=== PATIENT | female | born 1970 | race Caucasian/White ===

== ENCOUNTER 2016-09-25 02:57 | Inpatient (IN) | payer OTHER ==
[~2016-09-25] VITALS: Ht 162.6 cm; Wt 98.0 kg
[~2016-09-25 02:57] MED LIST: BENZONATATE100 M1 PO; COZAAR50 M1 PO; CYCLOBENZAPRINE10 M1 PO; DOK100 M1 PO; FUROSEMIDE40 M1 PO; HYDRODIURIL 2525 MG PO; IMITREX50 M1 PO; LOSARTAN POTASS25 M1 PO; LOSARTAN POTASS50 MG PO; MEDROL4 M2 PO; MELOXICAM15 M1 PO; MOTRIN800 MG PO; OXYCODONE-ACET1 EACH PO; PERCOCET 325 MG1 TA2 PO; PROAIR HFA8.5 GM INH; PROTONIX 40MG T40 MG PO; SYMBICORT 16010.2 GM INH; TANZEUM50 MG INJ; VERAPAMIL ER120 M1 PO; ZOFRAN4 MG PO; ZYRTEC10 M3 PO
--- NOTE | 2016-09-25 14:17 | Admission Core Measures ---
Admission Lab Results I reviewed the following labs: Laboratory Tests 09/25 120 Urines Urine Test NEGATIVE Admission Meds I reviewed the following Meds: Current Medications Sig/Polly Start time Last Medication Dose Stop Time Status Admin Clindamycin 900 MG ONCE 09/25 0000 NR (Cleocin) 09/25 2358 Dextrose/Water 50 ML (D5W) Heparin Sodium 5,000 UNIT ONCE 09/25 0000 NR (Porcine) 09/25 2358 Acute Coronary Syndrome Inclusion Criteria ACS Diagnosis No Inpatient Core Measures LDL Reminder: If No, please order W/I first 24hr of stay Congestive Heart Failure Inclusion Criteria CHF Diagnosis No Cerebrovascular accident Inclusion Criteria CVA/TIA Diagnosis No Inpatient Core Measures Bedside Swallow Eval Reminder: If BSE failed, place ST order Antithrombotic Reminder: Order Antithrombotic Medication by end of day 2 Antithrombotic Reminder: Document Reason Antithrombotic Not ordered by end of day 2 AFIB/Flutter Reminder: If Present, add to problem list AFIB/Flutter Reminder: Order Anticoag Medication for pts with AFIB/Flutter Atherosclerosis Reminder: If Present, add to problem list LDL Reminder: If No, please order W/I first 24hr of stay PT Order Reminder: If No, please order Venous thromboembolism Inpatient Core Measures VTE Risk Factors: Age > 40, Obesity, Surgery No [facility] VTE prophylaxis d/t No contraindications No VTE Pharm Prophylaxis d/t No contraindications Inclusion Criteria - Per Current guidelines, there needs to be overlap - treatment for the first 5 days of Warfarin therapy. - Parenteral Anticoagulation (IV or SC) needs to be - given along with Warfarin therapy. VTE Diagnosis No VTE Type NONE VTE Confirmed by (Test) NONE Problem List As ranked by this Provider includes Assessment & Plan 1. Morbid obesity 2. Gastric bypass status for obesity 3. GERD (gastroesophageal reflux disease) 4. Hypertension HOME MEDS Home Med List Cetirizine HCl (Zyrtec) 10 MG TABLET 1 TAB PO DAILY ALLERGIES (Reported) Furosemide 40 MG TABLET 1 TAB PO DAILY HTN (Reported) Losartan Potassium (Cozaar) 50 MG TABLET 1 TAB PO DAILY HTN (Reported) Pantoprazole Sodium (Protonix) 40 MG TABLET.DR 1 TAB PO DAILY ACID Sumatriptan Succinate (Imitrex) 50 MG TABLET 1 TAB PO AD PRN MIGRAINE ( Reported)
--- NOTE | 2016-09-25 14:21 | Patient Discharge Instructions ---
Discharge Instructions General Discharge Information You were seen/treated for: morbid obesity, hx hypertension and gerd You had these procedures: laparoscopic gastric bypass (09/25/16) Watch for these problems: fever>101.3, increased pain, redness/swelling/drainage, abdominal pain, dizziness, shortness of breath, chest pains. No bath, but you may shower: Yes Other wound care: you may shower. leave white steri strips in place. expect continued drainage from previous drain site, for which dry guaze may be used as a dressing until the drainage stops. Diet Continue normal diet: No Recommended Diet: Bariatric Additional DIET Information: weekly stage diet advancements as directed, as tolerated Activity Full Activity/No Limits: No Activity Self Limited: Yes Pounds, do NOT lift more than: 10 Other activity limits: no heavy lifting. no strenuous activity. Acute Coronary Syndrome Inclusion Criteria At DC or during hospital stay patient has or had the following: ACS DIAGNOSIS No Discharge Core Measures Meds if any: Prescribed or Continued at Discharge Meds if any: NOT Prescribed or Continued at Discharge Congestive Heart Failure Inclusion Criteria At DC or during hospital stay patient has or had the following: CHF DIAGNOSIS No Discharge Core Measures Meds if any: Prescribed or Continued at Discharge Meds if any: NOT Prescribed or Continued at Discharge Cerebrovascular accident Inclusion Criteria At DC or during hospital stay patient has or had the following: CVA/TIA Diagnosis No Discharge Core Measures Meds if any: Prescribed or Continued at Discharge Meds if any: NOT Prescribed or Continued at Discharge Venous thromboembolism Inclusion Criteria VTE Diagnosis No VTE Type NONE VTE Confirmed by (Test) NONE Discharge Core Measures - Per Current guidelines, there needs to be overlap - treatment for the first 5 days of Warfarin therapy. - If discharged on Warfarin prior to 5 days of - overlap therapy, the patient will need to be - assessed for post discharge needs including - *Post discharge parental anticoagulation - *Warfarin and/or parental anticoagulation education - *Follow up date to check INR post discharge At least 5 days overlap therapy as Inpatient No Meds if any: Prescribed or Continued at Discharge Note: Overlap Therapy is Warfarin and Anticoagulant Meds if any: NOT Prescribed or Continued at Discharge
[2016-09-25] MEDS ORDERED: HYCET 7.5 MG-3473 ML PO (14:23)
--- NOTE | 2016-09-25 14:31 | Surg Short-stay <48hrs Dis Sum ---
Visit Information Visit Dates Admission Date: 09/25/16 Discharge Date: 09/27/16 Surgical Short Stay DC Summary Admission Diagnosis: morbid obesity, hx of hypertension and gerd Final Diagnosis: same as above Procedure(s): laparoscopic gastric bypass (09/25/16) Summary/Significant Findings: Electively scheduled laparoscopic gastric bypass by (09/25/16), which went routinely. Started on stage 1 bariatric diet post-operatively. Pain control transitioned from iv to oral. Upper gi study done on post-op day#1 negative for leak or obstruction. Her blood pressure was stable throughout her hospitalization off losartan. KENDAL drain removed prior to discharge to home on post-op day#2. No lovenox indicated for continued treatment, according to her risk score. Condition at Discharge: stable Discharge Disposition: home or self care Discharge instructions provided to patient/family: Yes Post discharge follow-up plan: follow up with in one week weekly stage diet advancement, as tolerated
--- NOTE | 2016-09-25 16:49 | Operative Report ---
Operative/Inv Procedure Report Surgery Date: 09/25/16 Name of Procedure: Laparoscopic Gastric Bypass Pre-Operative Diagnosis: Morbid Obesity BMI 39, HTN, GERD, PCOS Post-Operative Diagnosis: Same Estimated Blood Loss: less than 50ml Surgeon/Tank Car Repairer: JACQUELIN VELAZQUEZ DO Anesthesia: general endotracheal tube IV Fluids: 1600 cc Drains: 10 Fr RUQ KENDAL Drain Specimens: None Complications: None Condition: Stable Operative Indication: This is a 46-year-old female that presented to the office for workup for bariatric surgery. After appropriate workup was completed we discussed with the patient the band, the sleeve, and the gastric bypass. The patient chose to undergo a gastric bypass. All risks including but not limited to bleeding, infection, leak, stricture, marginal ulcer, injury to surrounding bowel/ esophagus/stomach/liver/spleen, malabsorption/malnutrition, internal hernia/ small bowel obstruction, dumping syndrome, DVT/PE, and mortality of 05/999 patients were discussed in detail. The patient understood everything and decided to proceed. Operative/Procedure Note Note: The patient was brought to the operating room and placed on the table in supine position. Venodyne stockings were placed and adequate general endotracheal anesthesia was obtained. The patient was prepped and draped in standard surgical fashion. Began the procedure by making a 2 cm transverse incision supraumbilically and slightly to the left of the midline. Then using a 12 mm clear Visiport and a 10 mm 0 laparoscope the abdominal cavity was accessed. Great care was taken to go through the anterior rectus sheath, the posterior rectus sheath, and through the peritoneum. Once we entered the peritoneum the abdominal cavity was insufflated to 15 mmHg. Upon initial examination no obvious gross pathology was seen. Accessory trocars were placed, 5 mm in the epigastrium for the Karina liver retractor. The liver retractor was inserted and the liver was retracted anteriorly exposing the hiatus, no obvious hiatal hernia was seen. 5 mm ports were placed in the right and left upper quadrant, 5 mm left lateral port, and a 12 mm right lateral port. Began the procedure by mobilizing the angle of His and the left allison of the diaphragm. The stomach was retracted towards the feet and the peritoneum was lysed until the left allison was clearly visualized. We then brought our attention to the lesser curvature, and at the second vessel I began accessing the retrogastric space. Was done using Harmonic scalpel maintaining hemostasis. Once the retrogastric space was accessed we began creating our pouch using 60 mm purple staple load 3, and finished with a 45 mm purple load. The pouch was created around an Alma tube. Once the pouch was completely disconnected from the gastric remnant we examined the staple lines, some bleeding was noted and that was controlled using endoclips. We then brought our attention to the small bowel, the omentum was retracted above the transverse colon and the ligament of Treitz was identified. The small bowel was run 50 cm and divided using 60 mm farrell staple load. 2 clips were placed on the proximal staple line which was the biliopancreatic limb. That limb was run to the ligament of Treitz to assure that that was the blind limb. Following this the omentum was divided using Harmonic scalpel. After the omentum was divided the small bowel was coming up to the gastric pouch with no tension. At that point an enterotomy was made 5 cm from the prior divided distal staple line, chcf between the mesenteric and antimesenteric side. A gastrotomy was made posterior to the staple line. A side to side gastrojejunostomy was created using 45 mm purple staple load approximately 3-3-1 /2 cm in diameter. The Alma tube was passed through the common enterotomy, and the common enterotomy was closed using 2-0 Vicryl suture in a running fashion double layer. Following this the small bowel was clamped off distal to the anastomosis, and we preformed an air and a methylene blue leak test. No obvious leak was noted. All the methylene blue was suctioned out. The small bowel was then run 100 cm and an enterotomy was made on the antimesenteric side. Another enterotomy was made on the antimesenteric side of the biliopancreatic limb. A side to side functional end end jejunojejunostomy was created using 60 mm farrell staple load. The common enterotomy was closed using a 60 mm farrell staple load followed by a 45 mm farrell staple load. Some bleeding was noted from the staple line and that was controlled using endoclips as well. The mesenteric defect was closed using 2-0 Tycron suture in a running fashion. At that point we examined both anastomoses no obvious bleeding was noted and both appeared intact. 2-0 Vicryl suture was placed at the distal angle of the gastrojejunostomy to take some tension off the anastomosis. And a 2-0 Vicryl suture was placed on the anterior surface of the jejunum closing what appeared to be a serosal tear. A 10 Indonesian KENDAL drain was placed through the right upper quadrant incision under the liver and over the spleen. All ports were removed under direct visualization, no obvious bleeding was noted. Skin was closed using 4-0 Monocryl. Steri-Strips and dressings were placed. The patient was successfully extubated and transferred to the recovery room in stable condition. The patient tolerated the procedure well with no complications. Findings: no hiatal hernia, 100 cm alimentary limb CC: LUDA KRISHNA DO
[2016-09-25 19:36] VITALS: BP 126/82
--- NOTE | 2016-09-25 20:05 | NUR ---
NURSING NOTE: PT ARRIVED TO FLOOR VIA STRETCHER BY DISTRIBUTION FROM PACU. PT IS S/P LAP GASTRIC BYPASS. PT IS A&OX3, VSS AT THIS TIME STABLE, HR IS TACHY AT 112, PT C/O OF PAIN 5/10 IN ABD, HYCET GIVEN. PT HAS 5 ABD DSGS TO ABD ALL OF WHICH ARE CDI, THE FAR LEFT HAS A SMALL AMOUNT OF OLD BLOODY DRAINGE. KENDAL DRAIN TO R ABD SITE WNL, PUTTING OUT BLOODY DRAINAGE. PT LAST BM 09/24/16 AND STATES SHE IS NOT PASSING GAS AT THIS TIME, ONLY BURPING. NO BS HEARD. PT NPO FR UPPER GI SERIES IN THE MORNING. ALPS IN PLACE. SKIN INTACT, NO BREAKDOWN NOTED. NO FURTHER COMPLAINTS AT THIS TIME. AWAIT ANY ADDITIONAL ORDERS FROM SURGICAL PA. INFO PACKET GIVEN. PT SHOWN HOW TO USE CALL LIGHT SYSTEM. WILL CONTINUE TO MONITOR.
[2016-09-25 21:56] VITALS: BP 140/80
--- NOTE | 2016-09-25 23:20 | PN- General Surgery ---
Subjective Subjective: poc s/p lap gastric bypass no major complaints at this time denies cp, sob, no n+v with stage I diet Objective Vital Signs and I&Os Vital Signs Date Time Temp Pulse Resp B/P B/P Pulse O2 O2 Flow FiO2 Mean Ox Delivery Rate 09/25 2199 92 Room Air 09/26 2155 98.4 117 20 140/80 92 09/25 1936 94 Room Air 09/26 1935 98.1 112 20 126/82 94 Room Air Physical Exam: cv: rrr lungs: clear abd: soft, no guarding drsg dry coleen with minimal serosanguinous drainage ext: warm, distal cms intact reltex bracelet in place Assessment/Plan Assessment/Plan surgical stable plan ugi series in am walden behavioral carenox teaching oob /ambulate Core Measures/Miscellaneous Venous Thromboembolism VTE Risk Factors: Age > 40, Obesity, Surgery VTE Contraindications: No Contraindications VTE Diagnosis: No VTE Type: NONE VTE Confirmed by (Test): NONE Beta Travis Is Beta Travis a Home Med? No Antibiotics Is Patient on Antibiotics? No
[2016-09-26 06:31] VITALS: BP 112/74
--- NOTE | 2016-09-26 06:58 | PN- Bariatrics ---
See Addendum Subjective Subjective: The patient was seen this morning postoperatively day 1. She reports her pain is under adequate control and has no other complaints at the current time. She reports ambulating frequently and denies any nausea, chest pain, or difficulty breathing. Objective Vital Signs and I&Os Vital Signs Date Time Temp Pulse Resp B/P B/P Pulse O2 O2 Flow FiO2 Mean Ox Delivery Rate 09/26 630 97.9 95 18 112/74 95 Room Air 09/26 0621 Room Air 09/26 0200 92 Room Air 09/25 2200 92 Room Air 09/25 2156 98.4 117 20 140/80 92 09/25 1936 94 Room Air 09/25 193 98.1 112 20 126/82 94 Room Air Intake & Output 09/26 0800 09/26 0000 09/25 1600 09/25 0800 09/25 0000 09/24 1600 Intake Total 800 2513 Output Total 1015 570 Balance -215 1943 Intake, IV 800 2513 Intake, Oral 0 0 Output, 15 70 Drainage Output, Urine 1000 500 Patient 216 lb Weight Weight Reported by Patient Measurement Method Physical Exam: Gen.: Alert and in no obvious distress Skin: Warm and dry Cardiac: S1-S2 regular Pulmonary: Bilateral breath sounds are equal and decreased at bases Abdomen: Soft, obese, appropriate incisional tenderness, bowel sounds positive. Port sites are clean, dry, and intact. His KENDAL 1 holding suction with serosanguineous drainage in the bulb. Extremities: Bilateral lower extremities warm without calf tenderness or significant edema. Assessment/Plan Assessment/Plan Assessment: 46-year-old female status post lap scopic gastric bypass postoperative day #1. The patient is progressing as expected and her pain is under adequate control. Plan: Keep nothing by mouth for an upper GI this morning if that study is okay the patient be started on a stage I diet Out of bed and ambulate Follow-up morning laboratory studies GI and DVT prophylaxis Decrease IV fluids Continue current pain regiment Incentive spirometry Strict I's and O's Core Measures/Miscellaneous Venous Thromboembolism VTE Risk Factors: Age > 40, Obesity, Surgery VTE Contraindications: No Contraindications VTE Diagnosis: No VTE Type: NONE VTE Confirmed by (Test): NONE Beta Travis Is Beta Travis a Home Med? No Antibiotics Is Patient on Antibiotics? No
[2016-09-26 08:03] LABS: ABSOLUTE BASOPHIL COUNT 0 /CUMM (0.0-0.2); ABSOLUTE EOSINOPHIL COUNT 0 /CUMM (0.0-0.7); ABSOLUTE GRANULOCYTE CT 9.7 /CUMM (1.4-6.5); ABSOLUTE LYMPH COUNT 0.9 /CUMM (1.2-3.4); ABSOLUTE MONOCYTE COUNT 0.5 /CUMM (0.10-0.60); BASOPHIL % 0.2 % (0.0-2.0); EOSINOPHIL % 0 % (0-5); HEMATOCRIT 39.5 % (37-47); MEAN CORPUSCULAR HGB 29.1 PG (27.0-31.0); MEAN CORPUSCULAR HGB CONC 33.8 G/DL (33.0-37.0); MEAN CORPUSCULAR VOLUME 86.2 FL (81.0-99.0); MEAN PLATELET VOLUME 7.9 FL (7.4-10.4); PLATELET COUNT 301 /CUMM (130-400); RBC DISTRIBUTION WIDTH 14.1 % (11.5-14.5); RED BLOOD CELL CT 4.57 /CUMM (4.20-5.40); WHITE BLOOD CELL COUNT 11.2 /CUMM (4.8-10.8)
--- NOTE | 2016-09-26 08:38 | NUR ---
PT OFF THE FLOOR FOR UPPER GI SERIES. PENDING RETURN TO FLOOR.
--- NOTE | 2016-09-26 11:06 | RADIOLOGY REPORT ---
EXAMINATION: FLUOROSCOPY UPPER GI WITH GASTROGRAFIN CLINICAL INFORMATION: 1 day status post gastric bypass study. Postoperative evaluation. COMPARISON: None. TECHNIQUE: A limited Gastrografin upper GI study was performed using 30 ml of Gastroview with the patient in the semiupright position. Single spot film and 4 fluoroscopy series were acquired and are archived in PACS. FINDINGS: The preliminary aboriginal liaison officer view of the abdomen performed on 2 images demonstrate a drain and postsurgical kayley in the epigastric region. Normal bowel gas pattern is seen without abnormal bowel distention seen. Esophageal distensibility and motility is normal. The GE junction is located below the level of the diaphragm and no GE reflux seen. The remnant gastric pouch is normal with no abnormal distention or contrast leak seen. There is prompt emptying of contrast into the anastomosed small bowel, which is unremarkable in appearance. FLUOROSCOPY TIME: 48 seconds. IMPRESSION: Unremarkable examination status post gastric bypass study. No evidence of perforation or gastric outlet obstruction.
[2016-09-26 11:15] VITALS: BP 104/65
[2016-09-26 18:15] VITALS: BP 118/82
[2016-09-26 22:01] VITALS: BP 120/78
[2016-09-27 06:53] VITALS: BP 118/76
--- NOTE | 2016-09-27 07:20 | PN- Bariatrics ---
Subjective Subjective: No complaints. Tolerating stage 1 diet. No nausea at this time, but one episode yesterday. Upper gi study negative yesterday. Ambulating well. No dizziness. No shortness of breath. No chest pains. Voiding well. No flatus or bm yet, but willing to try dulcolax. Objective Vital Signs and I&Os Vital Signs Date Time Temp Pulse Resp B/P B/P Pulse O2 O2 Flow FiO2 Mean Ox Delivery Rate 09/27 0653 97.9 92 18 118/76 92 Room Air 09/27 0600 Room Air 09/26 2201 98.4 80 19 120/78 92 Room Air 09/26 2200 92 Room Air 09/26 1815 98.4 80 19 118/82 96 Room Air 09/26 1257 92 Room Air 09/26 1245 Room Air 09/26 1115 98.1 81 20 104/65 93 Room Air Intake & Output 09/27 0800 09/27 0000 09/26 1600 09/26 0800 09/26 0000 09/25 1600 Intake Total 720 735 794 145 4566 Output Total 220 488 030 1400 570 Balance 500 620 185 -90 1943 Intake, IV 600 375 244 600 9524 Intake, Oral 120 360 230 0 0 Number 0 Bowel Movements Output, 20 15 20 15 70 Drainage Output, Urine 200 376 699 0141 500 Patient 216 lb Weight Weight Reported by Patient Measurement Method Physical Exam: General - alert & oriented x 3. comfortable. no acute distress. Lungs - clear bilaterally. no w/r/r. Cardiac - s1s2. reg. Abdomen - soft. dressings c/d/i. expected juliet-incisional tenderness. KENDAL drain with serosang drainage. Extremities - warm bilaterally. no c/c/e. calves soft and nontender b/l. Current Medications: Current Medications Sig/Polly Start time Last Medication Dose Route Stop Time Status Admin Acetaminophen 1,000 MG Q6H 09/25 2199 DC 09/26 N/A 1 UNIT IV 09/26 1614 1657 Acetaminophen/ 15 ML Q6P PRN 09/25 1929 AC 09/27 Hydrocodone Bitart PO 0526 Bisacodyl 10 MG ONCE ONE 09/27 0715 UNVr VT 09/27 0716 Dextrose/Sodium 1,000 ML Q8H 09/25 1929 AC 09/27 Chloride IV 0530 Heparin Sodium 5,000 UNIT Q8 09/25 2199 AC 09/27 (Porcine) SC 0526 Hydromorphone HCl 1 MG Q4P PRN 09/25 1929 AC 09/26 IV 2315 Ketorolac 30 MG Q8 09/26 2199 AC 09/27 Tromethamine IV 09/27 2200 0611 Ondansetron HCl 4 MG Q6P PRN 09/25 1929 AC IV Pantoprazole Sodium 40 MG DAILY 09/26 1000 AC 09/26 IV 1047 Simethicone 40 MG Q6P PRN 09/25 1929 AC 09/27 PO 0526 Results Last 48 Hours of Labs: Laboratory Tests 09/26 09/25 0744 1207 Chemistry Sodium (137 - 145 mmol/L) 137 Potassium (3.5 - 5.1 mmol/L) 4.3 Chloride (98 - 107 mmol/L) 101 Carbon Dioxide (22 - 30 mmol/L) 28 Anion Gap (5 - 16) 9 BUN (7 - 17 mg/dL) 8 Creatinine (0.5 - 1.0 mg/dL) 0.7 Estimated GFR (>60 ml/min) > 60 BUN/Creatinine Ratio (7 - 25 %) 11.4 Glucose (65 - 99 mg/dL) 180 H Magnesium (1.6 - 2.3 mg/dL) 1.9 Hematology CBC w Diff NO MAN DIFF REQ WBC (4.8 - 10.8 /CUMM) 11.2 H RBC (4.20 - 5.40 /CUMM) 4.57 Hgb (12.0 - 16.0 G/DL) 13.3 Hct (37 - 47 %) 39.5 MCV (81.0 - 99.0 FL) 86.2 MCH (27.0 - 31.0 PG) 29.1 RDW (11.5 - 14.5 %) 14.1 Plt Count (130 - 400 /CUMM) 301 MPV (7.4 - 10.4 FL) 7.9 Gran % (42.2 - 75.2 %) 87.0 H Lymphocytes % (20.5 - 51.1 %) 8.2 L Monocytes % (1.7 - 9.3 %) 4.6 Eosinophils % (0 - 5 %) 0 Basophils % (0.0 - 2.0 %) 0.2 Absolute Granulocytes (1.4 - 6.5 /CUMM) 9.7 H Absolute Lymphocytes (1.2 - 3.4 /CUMM) 0.9 L Absolute Monocytes (0.10 - 0.60 /CUMM) 0.5 Absolute Eosinophils (0.0 - 0.7 /CUMM) 0 Absolute Basophils (0.0 - 0.2 /CUMM) 0 PUBS MCHC (33.0 - 37.0 G/DL) 33.8 Urines Urine Test NEGATIVE Assessment/Plan Assessment/Plan This 46-year-old female with hx htn and morbid obesity is POD#2 s/p lap gastric bypass tolerating stage 1 diet pain controlled KENDAL drain removed blood pressure stable off home med (losartan) oob/ambulating hep sc - dvt ppx protonix - gi ppx try dulcolax suppository for bowel function likely d/c home today will d/w Core Measures/Miscellaneous Venous Thromboembolism VTE Risk Factors: Age > 40, Obesity, Surgery VTE Contraindications: No Contraindications VTE Diagnosis: No VTE Type: NONE VTE Confirmed by (Test): NONE Beta Travis Is Beta Travis a Home Med? No Antibiotics Is Patient on Antibiotics? No
== END 2016-09-27 12:51 | DRG 403 ==
LOC: 2NB 02:57 → SDA 02:57 → ENRESERV 17:36 → 2NB 19:17 → ENPENDDIS 09-27 07:32 → 2NB 09-27 12:51
PROVIDERS: Physician Assistant; ADMIT Surgery
PROC: 0D164ZA Bypass Stomach to Jejunum, Percutaneous Endoscopic Approach (ICD-10-PCS; principal; 2016-09-25)
DX: E66.01 Morbid (severe) obesity due to excess calories (principal); K21.9 Gastro-esophageal reflux disease without esophagitis; I10 Essential (primary) hypertension; Z68.39 Body mass index [BMI] 39.0-39.9, adult; E28.2 Polycystic ovarian syndrome
CPT/HCPCS: 2NBP; 74240; 81025; 82436; J0131; J1100; J1170; J1644; J1885; J2405; J7042